=== PATIENT | male | born 1960 | race Caucasian/White ===

== ENCOUNTER 2025-05-18 15:56 | Emergency (ER) | payer BC ==
[~2025-05-18] VITALS: Ht 182.9 cm; Wt 84.1 kg
[2025-05-18 15:58] VITALS: BP 132/80; PULSE 99; RESP 15; TEMP 98.1; O2SAT 98
[2025-05-18] MEDS: triamcinolone acetonide 40mg/ml inj IM STA (16:29)
[2025-05-18] MEDS ORDERED: EPIN0.3P3 IM (16:42)
--- NOTE | 2025-05-18 16:43 | Physician Documentation ---
History of Present Illness ~ Chief Complaint: Allergic Reaction Stated Complaint: ALLERGIC REACTION Time Seen by MD: 16:14 HPI Patient is seen today with concern for allergic reaction from bee sting that he received about 10 minutes ago. Patient states he has bee sting allergy and was stung a few years ago and used his EpiPen at that time and never got a new one. Patient states he needs a new EpiPen and eval for possible anaphylaxis or allergic reaction. Patient currently denies any stridor or shortness of breath or difficulty breathing or swelling of his lips or face or throat. Patient complains of bee sting to his right arm and lower abdomen of about 2-3 bee stings from [place]. Patient has no other concern or complaint at this time. Medication Reconciliation Allergies: Coded Allergies: No Known Allergies (Unverified , 05/18/25) Review of Systems Constitutional: Denies: chills, fever, weakness Eyes: Denies: pain, blurred vision ENT: Denies: ear pain, nose pain, throat pain, mouth pain Respiratory: Denies: cough, shortness of breath Cardiovascular: Denies: chest pain, palpitations Gastrointestinal: Denies: abdominal pain, nausea, vomiting Genitourinary: Denies: burning, dysuria Male Genitalia: Denies: penile discharge, testicular pain Neurological: Denies: headache, dizziness Musculoskeletal: Denies: pain, swelling Integumentary: Denies: rash, lesions Allergic/Immunologic: Denies: hives, itching Hematologic/Lymphatic: Denies: no symptoms reported Psychiatric: Denies: depression, anxiety Physical Exam Vital Signs: Temperature: 98.1, Source: Temporal, Heart Rate: 99, Respiratory Rate: 15, BP: 132/80, Pulse Oximetry: 98, Weight: 84.090 Physical Exam General: Awake and Alert, no acute distress. HEENT: I do not appreciate any swelling of the lips or face for throat. Conjunctiva pink, Sclera clear, Mucus Membranes moist. Neck: Supple without masses and tenderness. Resp: I do not appreciate any stridor or swelling of the throat. Unlabored. Lungs clear to auscultation bilaterally. Heart: Regular Rate and rhythm, normal S1 and S2 without murmur, rub or gallop. Extremities: No cyanosis,clubbing or edema. Skin: Patient on exam does have some small skin lesions consistent with bee stings one on his right hand and to more of his right lower abdomen. I do not appreciate any significant hives or swelling or significant rash. Progress Results/Orders Results/Orders Completed Orders - DARRYL SYLVESTER Triamcinolone Acet 40mg/Ml Inj (Kenalog- (05/18/25 16:14) Medications Received in ER Medications (Trade) Dose Ordered Sig/Rosette Route PRN Reason Start Time Stop Time Status Last Admin Dose Admin (Kenalog-40 inj) 80 mg ONCE STAT IM 05/18/25 16:14 05/18/25 16:18 DC 05/18/25 16:29 80 MG Vital Signs 05/18/25 15:58 Temp 98.1 Pulse 99 Resp 15 B/P (MAP) 132/80 Pulse Ox 98 Medical Decision Making Findings Patient is seen today with concern for allergic reaction from bee sting that he received about 10 minutes ago. Patient states he has bee sting allergy and was stung a few years ago and used his EpiPen at that time and never got a new one. Patient states he needs a new EpiPen and eval for possible anaphylaxis or allergic reaction. Patient currently denies any stridor or shortness of breath or difficulty breathing or swelling of his lips or face or throat. Patient complains of bee sting to his right arm and lower abdomen of about 2-3 bee stings from [place]. Patient has no other concern or complaint at this time. Patient was given prescription for EpiPen as well as dose of Kenalog 80 mg IM in the ED today. Patient will follow up with primary care in 1-2 days if no better as needed sooner. Return to ED with any worsening, concerning or changing symptoms. Departure Disposition: 01 HOME / SELF CARE / HOMELESS Impression: Primary Impression: Acute allergic reaction Qualified Codes: T78.40XA - Allergy, unspecified, initial encounter Additional Impression: Bee sting Qualified Codes: T63.441A - Toxic effect of venom of bees, accidental (unintentional), initial encounter Condition: Stable Discharge Instructions: Bee, Wasp, or Hornet Sting, Adult Additional Instructions: Patient was given prescription for EpiPen as well as dose of Kenalog 80 mg IM in the ED today. Patient will follow up with primary care in 1-2 days if no better as needed sooner. Return to ED with any worsening, concerning or changing symptoms. Referrals: NO PRIMARY CARE PROVIDER (PCP) Prescriptions Epinephrine (Epipen 2-Edward) 0.3 Mg/0.3 Ml Auto.injct 1 SYR IM ONCE for 1 Day, #1 PKT 0 Refills Prov: DARRYL SYLVESTER PAC 05/18/25 Signature Scribe Signature: No scribe Attestation: No scribe DARRYL SYLVESTER PAC May 18, 2025 16:43
== END 2025-05-18 16:52 | disposition home or self-care (01) ==
LOC: ER 15:58
DX: T63.441A Toxic effect of venom of bees, accidental (unintentional), initial encounter (principal); T78.40XA Allergy, unspecified, initial encounter; Y92.89 Other specified places as the place of occurrence of the external cause
CPT/HCPCS: 96372; 99283; J3301